=== PATIENT | female | born 1935 | race Hispanic/Latino ===

== ENCOUNTER 2016-04-09 09:37 | Outpatient (CLI) | payer MEDICARE, OTHER ==
--- NOTE | 2016-04-11 10:40 | Mammography Report ---
BILATERAL DIGITAL SCREENING MAMMOGRAM WITH CAD. Comparison study is dated February 25, 2015. FINDINGS: The breasts are fibrofatty, and the overall appearance is similar. Scattered morphologically benign calcifications are stable. No masses or architectural distortion. Small axillary lymph nodes on the right are stable. IMPRESSION: Stable benign findings. BI-RADS CATEGORY: 2 = Benign ACR BI-RADS MAMMOGRAPHIC CODES: 0 = Needs additional imaging evaluation; 1 = Negative; 2 = Benign; 3 = Probably benign; 4 = Suspicious; 5 = Malignant; 6 = Known biopsy-proven malignancy COMMENT: 1. Dense breast tissue, i.e., adenosis, fibrocystic changes, etc., may obscure an underlying neoplasm. 2. Approximately 10% of cancers are not detected with mammography. 3. A negative mammography report should not delay biopsy if a clinically suspicious mass is present. RECOMMENDATION: Annual screening. COMMENT: Patient follow-up letters are generated by [employer].
== END 2016-04-09 09:38 | disposition home or self-care (01) ==
LOC: SPVWC 09:37
PROVIDERS: ATTEND Internal Medicine
DX: Z12.31 Encounter for screening mammogram for malignant neoplasm of breast (principal)
CPT/HCPCS: 77067; G0202

== ENCOUNTER 2017-04-15 09:29 | Outpatient (CLI) | payer MEDICARE, OTHER ==
--- NOTE | 2017-04-16 10:39 | Mammography Report ---
BILATERAL DIGITAL SCREENING MAMMOGRAM with CAD: 04/15/17 09:29:00 CLINICAL: Routine screening. COMPARISON:04/09/16 FINDINGS: The breasts are almost entirely fatty.Bilateral benign calcifications. Stable right inferior axillary lymph nodes with calcifications. No mass, architectural distortion or suspicious calcifications. IMPRESSION: No mammographic evidence of malignancy. BI-RADS CATEGORY: 2 -- Benign RECOMMENDATION: Routine mammographic screening in one year. COMMENT: Patient follow-up letters are generated by our [employer] application.
== END 2017-04-15 09:30 | disposition home or self-care (01) ==
LOC: SPVWC 09:29
PROVIDERS: ATTEND Internal Medicine
DX: Z12.31 Encounter for screening mammogram for malignant neoplasm of breast (principal)
CPT/HCPCS: 77067

== ENCOUNTER 2018-04-29 09:24 | Outpatient (CLI) | payer MEDICARE, OTHER ==
--- NOTE | 2018-04-30 09:40 | Mammography Report ---
BILATERAL DIGITAL SCREENING MAMMOGRAM with CAD: 04/29/18 09:24:00 CLINICAL: Routine screening.History bilateral silicone implants which have been removed. COMPARISON:04/15/17 FINDINGS: The breasts are almost entirely fatty.Stable bilateral benign calcifications which include benign arterial calcifications. Large calcifications in right axillary lymph nodes are consistent with silicone. No mass, architectural distortion or suspicious calcifications. IMPRESSION: No mammographic evidence of malignancy. BI-RADS CATEGORY: 2 -- Benign RECOMMENDATION: Routine mammographic screening in one year. COMMENT: Patient follow-up letters are generated by our [employer] application.
== END 2018-04-29 09:25 | disposition home or self-care (01) ==
LOC: SPVWC 09:24
PROVIDERS: ATTEND Internal Medicine
DX: Z12.31 Encounter for screening mammogram for malignant neoplasm of breast (principal)
CPT/HCPCS: 77067

== ENCOUNTER 2020-09-26 10:09 | Outpatient (CLI) | payer MEDICARE | END 2020-09-26 10:10 | disposition home or self-care (01) | LOC: SPVWC 10:09 | PROVIDERS: ATTEND Internal Medicine | DX: Z12.31 Encounter for screening mammogram for malignant neoplasm of breast (principal) | CPT/HCPCS: 77067 ==

== ENCOUNTER 2021-10-10 10:58 | Outpatient (CLI) | payer MEDICARE ==
--- NOTE | 2021-10-12 08:31 | Mammography Report ---
DIGITAL SCREENING MAMMOGRAM WITH CAD, 10/10/2021 CLINICAL INFORMATION / INDICATION: Routine screening mammography. TECHNIQUE: Digital bilateral 2D mammography was obtained in the craniocaudal and mediolateral obliqu e projections. This examination was interpreted with the benefit of Computer-Aided Detection analysis . COMPARISON: 09/26/2020, 04/29/2018, 04/15/2017 FINDINGS: Breast Density: There are scattered areas of fibroglandular density. No dominant mass, suspicious calcifications, or architectural distortion in either breast. Post-surgical changes from bilateral implant removal again noted. Scattered coarse and atheroscleroti c vascular calcifications are again noted. There has been no significant interval change. IMPRESSION: No mammographic evidence of malignancy. Follow up recommendation: Routine yearly screening mammogram. BI-RADS Category 2: BENIGN. A "normal" or negative report should not discourage follow up or biopsy of a clinically significant f inding. A written summary of these findings will be mailed to the patient. The patient will be entered into a mammography reporting system which will generate a reminder letter for the patient's next appointmen t at the appropriate interval. The [employer] recommends yearly mammograms starting at age 40 and continuing as l chanel as a woman is in good health. Breast MRI is recommended for women with an approximate 20-25% or greater lifetime risk of breast cancer, including women with a strong family history of breast or ova blessing cancer or who have been treated for Hodgkin's disease. Signer Name: Kyleigh Shaffer MD Signed: 10/12/2021 8:26 AM Workstation Name: [id number]
== END 2021-10-10 10:59 | disposition home or self-care (01) ==
LOC: SPVWC 10:58
PROVIDERS: ATTEND Internal Medicine
DX: Z12.31 Encounter for screening mammogram for malignant neoplasm of breast (principal)
CPT/HCPCS: 77067